=== PATIENT | male | born 1970 | race Hispanic/Latino ===

== ENCOUNTER 2022-07-10 10:49 | Emergency (ER) | payer MEDICARE, MEDICAID, SELFPAY ==
[2022-07-10 10:50] VITALS: BP 148/98; PULSE 111; RESP 18; TEMP 36.1; O2SAT 98; BMI 30.7
--- NOTE | 2022-07-10 11:09 | EKG12_ITS ---
Test Reason : Blood Pressure : / mmHG Vent. Rate : 095 BPM Atrial Rate : 095 BPM P-R Int : 130 ms QRS Dur : 106 ms QT Int : 362 ms P-R-T Axes : 057 024 040 degrees QTc Int : 454 ms Normal sinus rhythm Normal ECG Confirmed by HUAN WAGNER, RADHA ([id number]), city editor JONH SUAREZ ([id number]) on 07/13/2022 2:14:41 PM Referred By: Confirmed By:RADHA PRESSLEY MD
--- NOTE | 2022-07-10 11:09 | EX.ED.VIS.PS ---
HPI <QUETA Byers - Last Filed: 07/10/22 14:58> HPI - Psych History of Present Illness Chief Complaint: Mental Health Narrative Narrative: 51-year-old male with PMH of mental health problems presents with increased auditory and visual hallucinations over the last couple days. States he always hears voices whispering but now it feels like they are talking through a bull horn. He says it is his old homies talking to him and they are not telling him anything bad. He is also seeing hallucinations of trees and [place] or relatives. He has been homeless for about a year. States he has been in and out of [facility]. He has been in contact with 180 and called them last night saying things were urgent but cannot really explain why. Says he is not suicidal or homicidal. He does admit to being admitted for psychiatric reasons in the past at [facility]. He takes metformin and fluoxetine. He smokes cigarettes and weed and admits to occasional alcohol use. <Dr. Harley Barnes DO - Last Filed: 07/10/22 16:04> HPI - Psych Narrative Narrative: 51-year-old male with PMH of mental health problems presents with increased auditory and visual hallucinations over the last couple days. States he always hears voices whispering but now it feels like they are talking through a bull horn. He says it is his old homies talking to him and they are not telling him anything bad. He is also seeing hallucinations of trees and [place] or relatives. He has been homeless for about a year. States he has been in and out of [facility]. He has been in contact with 180 and called them last night saying things were urgent but cannot really explain why. Says he is not suicidal or homicidal. He does admit to being admitted for psychiatric reasons in the past at [facility]. He takes metformin and fluoxetine. He smokes cigarettes and weed and admits to occasional alcohol use. Denies illicit drug use. PFSH <QUETA Byers - Last Filed: 07/10/22 14:58> PFS Medical History Depression ETOH abuse Home Medications benztropine 2 mg tablet 1 mg PO QHS 06/29/16 [History Last Taken Unknown] trazodone 100 mg tablet 100 mg PO QHS 06/29/16 [History Last Taken Unknown] paliperidone 3 mg tablet,extended release 24 hr (Invega) 3 mg PO QHS 08/24/16 [History Last Taken Unknown] Allergy/AdvReac Type Severity Reaction Status Date / Time No Known Allergies Allergy Verified 07/10/22 10:50 Social History Smoking Status: Current every day smoker tobacco type: cigarettes ROS <QUETA Byers - Last Filed: 07/10/22 14:58> ROS ED ROS Narrative Constitutional: Negative for fever, chills, malaise. CVS: Negative for palpitations, chest pain. Respiratory: Negative for shortness of breath, cough. GI: Negative for abdominal pain, nausea, vomiting. : Negative for dysuria. Neuro: Negative for headache. Skin: Negative for rash, abscess, or wound. Musc: Negative for joint pain, swelling, trauma. <Dr. Harley Barnes DO - Last Filed: 07/10/22 16:04> ROS ED ROS Narrative Constitutional: Negative for fever, chills, malaise. CVS: Negative for palpitations, chest pain. Respiratory: Negative for shortness of breath, cough. GI: Negative for abdominal pain, nausea, vomiting. : Negative for dysuria. Neuro: Negative for headache. Skin: Negative for rash, abscess, or wound. Musc: Negative for joint pain, swelling, trauma psych: Denies SI, HI endorses auditory and visual hallucinations. EXAM <QUETA Byers - Last Filed: 07/10/22 14:58> Physical Exam Narrative Exam Narrative: CONST: Patient sitting in no acute distress. EYES: Normal inspection. NECK: Normal inspection. RESP: No respiratory distress, CTAB. CVS: Regular rate and rhythm, no murmur, no gallop. SKIN: Color normal, no rash, warm, dry, intact. EXTREMITIES: Normal appearance, no pedal edema. NEURO: Oriented x4. Tangential speech at times. PSYCH: Normal affect. Const Vital Signs: 07/10/22 10:50 Temperature 97 F L Temperature Source Temporal Pulse Rate 111 H Respiratory Rate 18 Blood Pressure 148/98 H Blood Pressure Mean 114 Pulse Ox 98 Oxygen Delivery Method Room Air <Dr. Harley Barnes DO - Last Filed: 07/10/22 16:04> Physical Exam Const Vital Signs: 07/10/22 10:50 Temperature 97 F L Temperature Source Temporal Pulse Rate 111 H Respiratory Rate 18 Blood Pressure 148/98 H Blood Pressure Mean 114 Pulse Ox 98 Oxygen Delivery Method Room Air [facility] <QUETA Byers - Last Filed: 07/10/22 14:58> [facility] Narrative Medical decision making narrative: History gathered from: Patient, caseworkers at bedside Patient presents with increased auditory and visual hallucinations. He is homeless and was brought in by 1-80. Patient is cooperative but rambling about different subjects. Does report hallucinations which have been going on for a long time. Not suicidal or homicidal. Initially labs and urine were ordered for medical clearance and crisis evaluation. He is white count of 13.2. He has mild hypokalemia at 3.2, otherwise unremarkable BMP. He was given potassium 20 mill equivalents. Urine drug screen is positive for amphetamines, MDMA, THC. With Robb CK was added on and is just slightly above normal at 400. No rhabdo. Alcohol negative. Crisis has been contacted and the high school social studies tutor was going to call back when the patient and his [facility] caseworkers eloped from the emergency room. At this point he is not pink slipped, no SI/HI, hallucinations are chronic and likely increased from his meth use. Differential: Depression, SI, HI, hallucinations, psychosis, drug use Lab Data Attestation: I reviewed the patient's lab results. Labs: Laboratory Results - last 24 hr 07/10/22 07/10/22 07/10/22 11:41 13:15 13:15 WBC 13.2 H RBC 4.96 Hgb 15.0 Hct 45.0 MCV 90.7 MCH 30.2 MCHC 33.3 RDW Std Deviation 44.2 H RDW Coeff of Edilson 13.3 Plt Count 386 MPV 8.2 Immature Gran % (Auto) 0.200 Neut % (Auto) 66.2 Lymph % (Auto) 23.7 Robertson % (Auto) 8.7 Eos % (Auto) 0.9 Baso % (Auto) 0.3 Absolute Neuts (auto) 8.8 H Absolute Lymphs (auto) 3.14 Nucleated RBC % 0 Sodium 138 Potassium 3.2 L Chloride 104 Carbon Dioxide 30.0 Anion Gap 4 L BUN 7 Creatinine 0.74 Estim Creat Clear Calc 121.94 Est GFR (MDRD) Af Amer 144 Est GFR (MDRD) Non-Af 119 BUN/Creatinine Ratio 9.5 L Glucose 103 Calcium 9.0 Total Creatine Kinase Urine Opiates Screen NEGATIVE Urine Methadone Screen NEGATIVE Ur Barbiturates Screen NEGATIVE Ur Phencyclidine Scrn NEGATIVE Ur Amphetamines Screen POSITIVE H MDMA (Ecstasy) Screen POSITIVE H U Benzodiazepines Scrn NEGATIVE Urine Cocaine Screen NEGATIVE U Cannabinoids Screen POSITIVE H Ur Drug Screen Comment Ethyl Alcohol 07/10/22 07/10/22 13:15 13:15 WBC RBC Hgb Hct MCV MCH MCHC RDW Std Deviation RDW Coeff of Edilson Plt Count MPV Immature Gran % (Auto) Neut % (Auto) Lymph % (Auto) Robertson % (Auto) Eos % (Auto) Baso % (Auto) Absolute Neuts (auto) Absolute Lymphs (auto) Nucleated RBC % Sodium Potassium Chloride Carbon Dioxide Anion Gap BUN Creatinine Estim Creat Clear Calc Est GFR (MDRD) Af Amer Est GFR (MDRD) Non-Af BUN/Creatinine Ratio Glucose Calcium Total Creatine Kinase 427 H Urine Opiates Screen Urine Methadone Screen Ur Barbiturates Screen Ur Phencyclidine Scrn Ur Amphetamines Screen MDMA (Ecstasy) Screen U Benzodiazepines Scrn Urine Cocaine Screen U Cannabinoids Screen Ur Drug Screen Comment Ethyl Alcohol < 3.0 EKG Initial EKG: Attestation: I personally reviewed and interpreted this EKG as follows: Interpretation: Sinus Rhythm and No Acute Injury Pattern Comments: Sinus rhythm at 95 bpm with no ectopy or ischemic changes <Dr. Harley Barnes, DO - Last Filed: 07/10/22 16:04> [facility] Lab Data Lab results narrative: CBC with leukocytosis suggestive of systemic inflammation, no anemia or thrombocytopenia BMP with mild hypokalemia otherwise no significant electrolyte abnormalities, no significant anion gap to suggest endorgan hypoperfusion, no acute kidney injury Urine tox screen positive for methamphetamine and MDMA as well as cannabinoids Labs: Laboratory Results - last 24 hr 07/10/22 07/10/22 07/10/22 11:41 13:15 13:15 WBC 13.2 H RBC 4.96 Hgb 15.0 Hct 45.0 MCV 90.7 MCH 30.2 MCHC 33.3 RDW Std Deviation 44.2 H RDW Coeff of Edilson 13.3 Plt Count 386 MPV 8.2 Immature Gran % (Auto) 0.200 Neut % (Auto) 66.2 Lymph % (Auto) 23.7 Robertson % (Auto) 8.7 Eos % (Auto) 0.9 Baso % (Auto) 0.3 Absolute Neuts (auto) 8.8 H Absolute Lymphs (auto) 3.14 Nucleated RBC % 0 Sodium 138 Potassium 3.2 L Chloride 104 Carbon Dioxide 30.0 Anion Gap 4 L BUN 7 Creatinine 0.74 Estim Creat Clear Calc 121.94 Est GFR (MDRD) Af Amer 144 Est GFR (MDRD) Non-Af 119 BUN/Creatinine Ratio 9.5 L Glucose 103 Calcium 9.0 Total Creatine Kinase Urine Opiates Screen NEGATIVE Urine Methadone Screen NEGATIVE Ur Barbiturates Screen NEGATIVE Ur Phencyclidine Scrn NEGATIVE Ur Amphetamines Screen POSITIVE H MDMA (Ecstasy) Screen POSITIVE H U Benzodiazepines Scrn NEGATIVE Urine Cocaine Screen NEGATIVE U Cannabinoids Screen POSITIVE H Ur Drug Screen Comment Ethyl Alcohol 07/10/22 07/10/22 13:15 13:15 WBC RBC Hgb Hct MCV MCH MCHC RDW Std Deviation RDW Coeff of Edilson Plt Count MPV Immature Gran % (Auto) Neut % (Auto) Lymph % (Auto) Robertson % (Auto) Eos % (Auto) Baso % (Auto) Absolute Neuts (auto) Absolute Lymphs (auto) Nucleated RBC % Sodium Potassium Chloride Carbon Dioxide Anion Gap BUN Creatinine Estim Creat Clear Calc Est GFR (MDRD) Af Amer Est GFR (MDRD) Non-Af BUN/Creatinine Ratio Glucose Calcium Total Creatine Kinase 427 H Urine Opiates Screen Urine Methadone Screen Ur Barbiturates Screen Ur Phencyclidine Scrn Ur Amphetamines Screen MDMA (Ecstasy) Screen U Benzodiazepines Scrn Urine Cocaine Screen U Cannabinoids Screen Ur Drug Screen Comment Ethyl Alcohol < 3.0 Treatment and Re-Evaluation Narrative: I have personally performed a face to face assessment of the patient and have reviewed the JEN Note. I performed a substantive portion of the visit including all aspects of the following. My jett findings include: History is [decompensated schizophrenia] Exam is [without evidence of internal stimulation however patient did have tangential thoughts, he was not pressured, is not manic he was redirectable and pleasant] Medical Decision Making [we will perform medical clearance. Medical clearance labs remarkable for methamphetamine and MDMA ingestion which is likely underlying precipitant of his decompensated schizophrenia along with med noncompliance. We will refer the patient to our behavioral health colleagues for ED evaluation and disposition assistance] Prior to final discharge and behavioral expert evaluation patient eloped from the emergency department. He was not pink slipped and again he was not suicidal homicidal. Discharge Plan Triage Chief Complaint: Mental Health ED Midlevel Provider: Evette Lund ED Provider: Harley Barnes Dx/Rx/DC Orders Prescriptions: No Action trazodone 100 MG tablet 100 mg PO QHS benztropine 2 MG tablet 1 mg PO QHS paliperidone [Invega] 3 MG tablet 3 mg PO QHS Primary Care Provider: [facility] Lisa Owens Referrals: [facility] Lisa Owens [Primary Care Provider] -
--- NOTE | 2022-07-10 11:31 | ED.RN ---
PER JASPREET CARDENAS PT DOES REQUIRE A SITTER AT THIS TIME. [employer] OFF[facility] NOTIFIED.
[2022-07-10 12:06] LABS: Amphetamine Urine VISTA POSITIVE (<1000 ng/mL); Barbiturate Urine VISTA NEGATIVE (< 200 ng/mL); Benzodiazepine Urine VISTA NEGATIVE (< 200 ng/mL); Cocaine Urine VISTA NEGATIVE (< 300 ng/mL); Ecstacy Urine VISTA POSITIVE (< 500 ng/mL); Methadone Urine VISTA NEGATIVE (< 300 ng/mL); PCP Urine VISTA NEGATIVE (< 25 ng/mL); THC Urine VISTA POSITIVE (< 50 ng/mL); Vista UDS pH Range 7
[2022-07-10 13:25] LABS: Absolute Lymphocyte Count 3.14 X10^3/uL (0.83-4.51); Absolute Neutrophil Count 8.8 X10^3/uL (2.0-7.7); Basophil# 0.04 X10^3/uL; Basophil% 0.3 % (0-1); Eosinophil# 0.12 X10^3/uL; Eosinophils% 0.9 % (0-5); Lymphocyte # 3.14 X10^3/ul (0.83-4.51); Lymphocyte % 23.7 % (19-41); Mean Corp Hgb Conc 33.3 g/dL (32-36); Mean Corpuscular Hgb 30.2 pg (27.0-32.0); Mean Corpuscular Volume 90.7 fL (80-94); Mean Platelet Vol. 8.2 fl (6.2-12.0); Monocyte# 1.15 X10^3/uL; Monocyte% 8.7 % (0-10); NRBC Flagged by Analyzer 0 % (0-5); Neutrophil # 8.76 X10^3/uL (2.7-7.7); Neutrophil % 66.2 % (47-70); Platelet Count 386 K/mm3 (150-450); RBC Distribution Width CV 13.3 % (11.6-14.6); RBC Distribution Width SD 44.2 fl (35.1-43.9); Red Blood Count 4.96 M/mm3 (4.6-6.2); White Blood Count 13.2 K/mm3 (4.4-11.0)
[2022-07-10 13:46] LABS: Anion Gap 4 (5-15); BUN 7 mg/dL (7-18); BUN/Creat Ratio 9.5 RATIO (10-20); CPK Total, Creatine Kinase 427 U/L (39-308); Chloride 104 mmol/L (98-107); Creatinine, Serum 0.74 mg/dL (0.70-1.30); EST Glomerular Filtration Rate 119 mL/min (>60); Est Glom Filt Rate - Afr Amer 144 mL/min (>60); Estimated Creatinine Clearance 121.94 ml/min; Glucose 103 mg/dL (74-106); Potassium 3.2 mmol/L (3.5-5.1); Sodium Level 138 mmol/L (136-145)
[2022-07-10 14:03] LABS: Alcohol, Blood (Medical)-Serum < 3.0 mg/dL
--- NOTE | 2022-07-10 14:44 | ED.RN ---
PT WAS IN ROOM WHEN QUETA CARDENAS TALKED TO THIS RN. UPON RETURNING FROM ANOTHER ROOM , PT AND [facility] STAFF NOT IN ROOM. ATTEMPTED TO LOCATE PT. PT NOT FOUND NOR WAS STAFF
== END 2022-07-10 16:56 | disposition home or self-care (01) ==
PROVIDERS: Physician Assistant; Emergency Provider Emergency Medicine; Visit Provider Emergency Medicine
DX: F20.9 Schizophrenia, unspecified (principal); E87.6 Hypokalemia; F17.210 Nicotine dependence, cigarettes, uncomplicated; Z59.00 Homelessness unspecified; F15.90 Other stimulant use, unspecified, uncomplicated; Z91.14 Patient's other noncompliance with medication regimen
CPT/HCPCS: 36415; 80048; 80307; 82077; 82550; 85025; 93005; 99282